=== PATIENT | female | born 1955 | race Caucasian/White ===

== ENCOUNTER 2019-07-17 10:07 | Outpatient (CLI) | payer OTHER ==
--- NOTE | 2019-07-17 10:45 | MMO ---
Bilateral MAMMO Bilat Diag [facility]. CLINICAL HISTORY: Patient is 63 years old and is seen for diagnostic exam. The patient has no family history of breast cancer. The patient has no personal history of cancer. VIEWS: The views performed were: bilateral craniocaudal with tomosynthesis; bilateral mediolateral oblique with tomosynthesis; and bilateral mediolateral with tomosynthesis. FILMS COMPARED: The present examination has been compared to a prior imaging study performed at [facility] on 07/17/2019. This study has been interpreted with the assistance of computer-aided detection. MAMMOGRAM FINDINGS: There are scattered fibroglandular densities. Finding 1: There is a low density, oval mass measuring 17 millimeters with circumscribed margins seen in the lower-inner region of the left breast. This corresponds to the area of palpable concern. The mass was shown to be a cyst on ultrasound. Finding 2: There are benign appearing calcifications seen in both breasts. IMPRESSION: FINDING 1: MASS IN THE LEFT BREAST IS BENIGN. A ROUTINE FOLLOW-UP MAMMOGRAM IN 1 YEAR IS RECOMMENDED. THE RESULTS OF THIS EXAM WERE SENT TO THE PATIENT. ACR BI-RADS Category 2 - Benign finding MAMMOGRAPHY NOTE: 1. A negative mammogram report should not delay a biopsy if a dominant of clinically suspicious mass is present. 2. Approximately 10% to 15% of breast cancers are not detected by mammography. 3. Adenosis and dense breasts may obscure an underlying neoplasm. Reported by: LUTHER DAVID MD Electonically Signed: [id number]
--- NOTE | 2019-07-17 10:53 | MMO ---
Left US Breast Limited Lt. CLINICAL HISTORY: Patient is 63 years old and is seen for . VIEWS: The views performed were: . FILMS COMPARED: The present examination has been compared to a prior imaging study performed at [facility] on 07/17/2019. This study has been interpreted with the assistance of computer-aided detection. LEFT BREAST ULTRASOUND FINDINGS: There is an oval simple cyst measuring 17 millimeters seen in the left breast at 5 o'clock. This corresponds to the region of palpable concern. On ultrasound, no suspicious findings are identified. IMPRESSION: THERE IS NO MAMMOGRAPHIC EVIDENCE OF MALIGNANCY. A ROUTINE FOLLOW-UP MAMMOGRAM IN 1 YEAR IS RECOMMENDED. THE RESULTS OF THIS EXAM WERE SENT TO THE PATIENT. ACR BI-RADS Category 2 - Benign finding MAMMOGRAPHY NOTE: 1. A negative mammogram report should not delay a biopsy if a dominant of clinically suspicious mass is present. 2. Approximately 10% to 15% of breast cancers are not detected by mammography. 3. Adenosis and dense breasts may obscure an underlying neoplasm. Reported by: LUTHER DAVID MD Electonically Signed: [id number]
== END 2019-07-17 10:08 | disposition home or self-care (01) ==
LOC: BICMAMMO 10:07
PROVIDERS: ATTEND Family Medicine
DX: N63.21 Unspecified lump in the left breast, upper outer quadrant (principal)
CPT/HCPCS: 77066; G0279